=== PATIENT | female | born 1950 | race Hispanic/Latino ===

== ENCOUNTER → 2018-06-16 | Outpatient (CLI) | payer OTHER ==
[~2018-06-16] MED LIST: ATOR10TA69 PO; DEXL60CA3 PO; HYDR12.54 PO; LEVO25TA54 PO; LOSA100T20 PO; NAPR-1192 PO; VALS160T29 PO
== END | disposition home or self-care (01) ==
LOC: RAH 08:12
PROVIDERS: ATTEND Internal Medicine
DX: K76.89 Other specified diseases of liver (principal); I10 Essential (primary) hypertension; K21.9 Gastro-esophageal reflux disease without esophagitis; Z87.891 Personal history of nicotine dependence
CPT/HCPCS: 76700

== ENCOUNTER 2018-06-17 05:30 | Day surgery (SDC) | payer OTHER ==
[2018-06-17] VITALS (8 sets, daily range): BP systolic 85–147; BP diastolic 39–76
[~2018-06-17] VITALS: Ht 170.2 cm; Wt 67.6 kg
[~2018-06-17 05:30] MED LIST changes: -NAPR-1192 PO; -VALS160T29 PO
[2018-06-17] MEDS ORDERED: SODIUM CHLORIDE 0.9% 1000ML 1,000 ML IV ONE (05:49)
[2018-06-17] MEDS ORDERED: PROPOFOL 10 MG/ML 20ML VIAL IV ONE ×3 (06:35→06:48)
== END 2018-06-17 07:35 | disposition home or self-care (01) ==
LOC: ENDO 05:30 → DAH 05:30 → ENDO 07:35
PROVIDERS: ATTEND Internal Medicine
DX: C17.0 Malignant neoplasm of duodenum (principal); K31.89 Other diseases of stomach and duodenum; E78.2 Mixed hyperlipidemia; I10 Essential (primary) hypertension; Z79.899 Other long term (current) drug therapy
CPT/HCPCS: 43238; 88173; 93005; A4215; A4606; J2704 ×3; J7030; 43232

== ENCOUNTER → 2020-03-22 | Outpatient (CLI) | payer OTHER | END | disposition home or self-care (01) | LOC: RAH 08:56 | PROVIDERS: ATTEND Internal Medicine Gastroenterology | DX: K76.89 Other specified diseases of liver (principal); K76.0 Fatty (change of) liver, not elsewhere classified; R10.10 Upper abdominal pain, unspecified ==